=== PATIENT | female | born 1965 | race Caucasian/White ===

== ENCOUNTER 2017-06-18 10:26 | Emergency (ER) | payer MEDICAID ==
[~2017-06-18] VITALS: Ht 185.4 cm; Wt 61.4 kg
[~2017-06-18 10:26] MED LIST: ALPR-624 PO; CYCL-1 PO; DOCU-148 PO; ESTR1TAB19 PO; HYDR1TAB PO; MEDR2.5T7 PO; NAPR-56 PO
[2017-06-18] MEDS ORDERED: LORazepam 1 MG tablet PO ONE (11:20)
[2017-06-18 11:46] LABS: BASOPHILS % (AUTO) 0.4 % (0-1); EOSINOPHILS # (AUTO) 0.1 X10'3 (0-0.9); EOSINOPHILS % (AUTO) 1.2 % (0-6); HEMATOCRIT 42.2 % (35.0-45.0); HEMOGLOBIN 14.6 g/dl (12.0-16.0); LYMPHOCYTES # (AUTO) 2.4 X10'3 (1.1-4.8); LYMPHOCYTES % (AUTO) 34.1 % (21-51); MEAN CORPUSCULAR HEMOGLOBIN 33.2 PG (27.0-31.0); MEAN CORPUSCULAR HGB CONC 34.6 % (33.0-36.5); MEAN PLATELET VOLUME 9.1 FL (7.4-10.4); MONOCYTES # (AUTO) 0.5 X10'3 (0-0.9); MONOCYTES % (AUTO) 7.6 % (2-12); NEUTROPHILS % (AUTO) 56.7 % (42-75); PLATELET COUNT 292 X10'3 (140-440)
[2017-06-18 11:50] LABS: URINE HCG NEGATIVE (NEG)
[2017-06-18 12:00] LABS: URINE AMPHETAMINE SCREEN NEGATIVE (Neg); URINE BARBITUATE SCREEN NEGATIVE (Neg); URINE BENZODIAZEPINES SCREEN NEGATIVE (Neg); URINE CANNABINOID SCREEN POSITIVE (Neg); URINE COCAINE SCREEN NEGATIVE (Neg); URINE METHADONE SCREEN NEGATIVE (Neg); URINE OPIATE SCREEN NEGATIVE (Neg); URINE PHENCYCLIDINE SCREEN NEGATIVE (Neg)
[2017-06-18] MEDS ORDERED: albuterol 2.5 MG/3 ML nebule NEB ONE (12:10)
[2017-06-18 12:12] LABS: ALANINE AMINOTRANSFERASE 41 U/L (12-78); ALBUMIN 4.4 G/DL (3.4-5.0); ALBUMIN/GLOBULIN RATIO 1.2 (1.1-1.5); ALKALINE PHOSPHATASE 58 IU/L (46-116); ANION GAP 12 (8-16); ASPARTATE AMINO TRANSFERASE 38 U/L (10-37); BILIRUBIN,TOTAL 0.7 MG/DL (0.1-1.0); BLOOD UREA NITROGEN 12 MG/DL (7-18); BUN/CREATININE RATIO 13.3 (6.6-38.0); CALCIUM 9.4 MG/DL (8.5-10.1); CHLORIDE 104 MMOL/L (99-107); GLUCOSE 112 MG/DL (70-104); POTASSIUM 3.5 MMOL/L (3.5-5.1); SODIUM 143 MMOL/L (135-145); TOTAL CARBON DIOXIDE 26.8 MMOL/L (24-32); eGFR 66 ML/MIN
[2017-06-18 12:14] LABS: ETHANOL < 0.010 GM/DL (0.0-0.010)
[2017-06-18 15:56] VITALS: BP 144/96
== END 2017-06-18 15:59 | disposition home or self-care (01) ==
LOC: ER 10:26
DX: F31.9 Bipolar disorder, unspecified (principal); F22 Delusional disorders; F41.9 Anxiety disorder, unspecified; G89.29 Other chronic pain; Z79.899 Other long term (current) drug therapy
CPT/HCPCS: 36415; 80053; 80305; 80320; 81025; 84443; 85025; 94640; 99284

== ENCOUNTER 2017-07-25 02:21 | Emergency (ER) | payer MEDICAID ==
[~2017-07-25] VITALS: Ht 180.3 cm; Wt 72.5 kg
[2017-07-25] MEDS ORDERED: ketorolac trometh inj. 60 MG/2 ML VIAL IM ONE (03:30)
[2017-07-25 03:48] LABS: URINE AMPHETAMINE SCREEN POSITIVE (Neg); URINE BARBITUATE SCREEN NEGATIVE (Neg); URINE BENZODIAZEPINES SCREEN NEGATIVE (Neg); URINE CANNABINOID SCREEN POSITIVE (Neg); URINE COCAINE SCREEN NEGATIVE (Neg); URINE METHADONE SCREEN NEGATIVE (Neg); URINE OPIATE SCREEN NEGATIVE (Neg); URINE PHENCYCLIDINE SCREEN NEGATIVE (Neg)
[2017-07-25 04:27] VITALS: BP 138/91
== END 2017-07-25 04:29 | disposition home or self-care (01) ==
LOC: ER 02:22 → EEVIPCON 02:22 → ER 04:29
DX: F23 Brief psychotic disorder (principal); F15.10 Other stimulant abuse, uncomplicated; G89.29 Other chronic pain; M54.5 Low back pain; E86.0 Dehydration; F41.9 Anxiety disorder, unspecified; F32.9 Major depressive disorder, single episode, unspecified; F17.210 Nicotine dependence, cigarettes, uncomplicated; Z98.890 Other specified postprocedural states; Z79.899 Other long term (current) drug therapy
CPT/HCPCS: 80305; 99284

== ENCOUNTER 2017-08-25 15:27 | Emergency (ER) | payer MEDICAID ==
[~2017-08-25] VITALS: Ht 190.5 cm; Wt 68.2 kg
[2017-08-25] MEDS ORDERED: TETanus/Pertussis (Acell)/Diphther VAC/PF (Tdap-Adult) 0.5ml syringe IMVAC ONE (20:25)
[2017-08-25 20:52] VITALS: BP 133/98
[2017-08-25] MEDS ORDERED: LORA10TA7 PO (20:54)
[2017-08-25] MEDS ORDERED: MUPI22OI30 TOP (20:54)
[2017-08-25] MEDS ORDERED: NAPR-56 PO (20:54)
== END 2017-08-25 21:15 | disposition home or self-care (01) ==
LOC: ER 15:27
DX: S20.211A Contusion of right front wall of thorax, initial encounter (principal); S80.262A Insect bite (nonvenomous), left knee, initial encounter; S80.261A Insect bite (nonvenomous), right knee, initial encounter; F15.10 Other stimulant abuse, uncomplicated; G89.29 Other chronic pain; F17.210 Nicotine dependence, cigarettes, uncomplicated; Z98.890 Other specified postprocedural states; Z56.0 Unemployment, unspecified; Z59.0 Homelessness; Z79.899 Other long term (current) drug therapy; Y08.89XA Assault by other specified means, initial encounter; W57.XXXA Bitten or stung by nonvenomous insect and other nonvenomous arthropods, initial encounter; Y93.89 Activity, other specified; Y92.89 Other specified places as the place of occurrence of the external cause; Y99.8 Other external cause status
CPT/HCPCS: 71101; 90471; 90715; 99284

== ENCOUNTER 2017-08-27 00:53 | Emergency (ER) | payer MEDICAID ==
[~2017-08-27] VITALS: Ht 185.4 cm; Wt 65.0 kg
[~2017-08-27 00:53] MED LIST changes: +LORA10TA7 PO; +MUPI22OI30 TOP
[2017-08-27] MEDS ORDERED: ibuprofen tablet 400 MG TABLET PO ONE (02:15)
[2017-08-27 02:36] VITALS: BP 114/66
== END 2017-08-27 02:37 | disposition home or self-care (01) ==
LOC: ER 00:53
DX: M25.511 Pain in right shoulder (principal); J02.9 Acute pharyngitis, unspecified; G89.29 Other chronic pain; F15.10 Other stimulant abuse, uncomplicated; Z98.890 Other specified postprocedural states; Z60.2 Problems related to living alone; Z59.0 Homelessness; Z56.0 Unemployment, unspecified; Z79.899 Other long term (current) drug therapy
CPT/HCPCS: 99283

== ENCOUNTER 2017-09-19 08:53 | Emergency (ER) | payer MEDICAID ==
[~2017-09-19] VITALS: Ht 185.4 cm; Wt 67.5 kg
[~2017-09-19 08:53] MED LIST changes: -MUPI22OI30 TOP
[2017-09-19 08:55] VITALS: BP 94/44
== END 2017-09-19 10:41 | disposition home or self-care (01) ==
LOC: ER 08:53
DX: S90.31XA Contusion of right foot, initial encounter (principal); F17.200 Nicotine dependence, unspecified, uncomplicated; F15.10 Other stimulant abuse, uncomplicated; W22.8XXA Striking against or struck by other objects, initial encounter; Y93.89 Activity, other specified; Y92.89 Other specified places as the place of occurrence of the external cause; Y99.8 Other external cause status
CPT/HCPCS: 73630; 99284

== ENCOUNTER 2017-10-09 16:54 | Emergency (ER) | payer MEDICAID ==
[~2017-10-09] VITALS: Ht 182.9 cm; Wt 65.0 kg
[2017-10-09 17:04] VITALS: BP 145/98
== END 2017-10-09 17:35 | disposition home or self-care (01) ==
LOC: MERGE 16:55 → ER 16:55
DX: Z00.00 Encounter for general adult medical examination without abnormal findings (principal)
CPT/HCPCS: 99283

== ENCOUNTER 2017-10-27 18:33 | Emergency (ER) | payer MEDICAID ==
[~2017-10-27] VITALS: Ht 597.6 cm; Wt 63.0 kg
[2017-10-27] MEDS ORDERED: haloperidol lactate 5mg/ml inj IM ONE (18:55)
[2017-10-27] MEDS ORDERED: LORazepam 2 mg/ml vial IM ONE (18:55)
[2017-10-27] MEDS ORDERED: diphenhydrAMINE 50 mg/ml inj IM ONE (18:55)
[2017-10-27 19:11] LABS: BASOPHILS % (AUTO) 0.2 % (0-1); EOSINOPHILS # (AUTO) 0.2 X10'3 (0-0.9); EOSINOPHILS % (AUTO) 2.2 % (0-6); HEMATOCRIT 40.6 % (35.0-45.0); LYMPHOCYTES # (AUTO) 3.6 X10'3 (1.1-4.8); LYMPHOCYTES % (AUTO) 33.1 % (21-51); MEAN CORPUSCULAR HGB CONC 34.4 % (33.0-36.5); MEAN CORPUSCULAR VOLUME 98.8 FL (78-98); MEAN PLATELET VOLUME 8.2 FL (7.4-10.4); MONOCYTES # (AUTO) 0.6 X10'3 (0-0.9); MONOCYTES % (AUTO) 5.8 % (2-12); NEUTROPHILS # (AUTO) 6.3 X10'3 (1.8-7.7); NEUTROPHILS % (AUTO) 58.7 % (42-75); PLATELET COUNT 325 X10'3 (140-440); RED BLOOD COUNT 4.11 X10'6 (4.20-5.60); WHITE BLOOD COUNT 10.7 X10'3 (4.5-11.0)
[2017-10-27 19:26] LABS: ALANINE AMINOTRANSFERASE 39 U/L (12-78); ALBUMIN 3.5 G/DL (3.4-5.0); ALBUMIN/GLOBULIN RATIO 0.9 (1.1-1.5); ALKALINE PHOSPHATASE 70 IU/L (46-116); ANION GAP 2 (8-16); ASPARTATE AMINO TRANSFERASE 22 U/L (10-37); BILIRUBIN,TOTAL 0.3 MG/DL (0.1-1.0); BLOOD UREA NITROGEN 17 MG/DL (7-18); BUN/CREATININE RATIO 18.1 (6.6-38.0); CHLORIDE 105 MMOL/L (99-107); CREATININE 0.94 MG/DL (0.40-0.90); GLUCOSE 127 MG/DL (70-104); POTASSIUM 4.2 MMOL/L (3.5-5.1); SODIUM 140 MMOL/L (135-145); TOTAL CARBON DIOXIDE 32.7 MMOL/L (24-32); TOTAL PROTEIN 7.2 G/DL (6.4-8.2); eGFR 63 ML/MIN
[2017-10-27 19:35] LABS: ETHANOL < 0.010 GM/DL (0.0-0.010)
[2017-10-27 22:41] LABS: URINE HCG NEGATIVE (NEG)
[2017-10-27 22:48] LABS: CLARITY,URINE SLIGHTLY CLOUDY (Clear); COLOR,URINE YELLOW (Yellow); GLUCOSE, URINE NEGATIVE (Neg); KETONES,URINE NEGATIVE (Neg); LEUKOCYTE ESTERASE ,URINE LARGE (Neg); NITRITES, URINE POSITIVE (Neg); OCCULT BLOOD,URINE NEGATIVE (Neg); PROTEIN,URINE NEGATIVE (Neg); UROBILINOGEN,URINE 0.2 E.U/dL (0.2-1.0)
[2017-10-27 22:49] LABS: URINE AMPHETAMINE SCREEN NEGATIVE (Neg); URINE BARBITUATE SCREEN NEGATIVE (Neg); URINE BENZODIAZEPINES SCREEN NEGATIVE (Neg); URINE CANNABINOID SCREEN POSITIVE (Neg); URINE COCAINE SCREEN NEGATIVE (Neg); URINE METHADONE SCREEN NEGATIVE (Neg); URINE OPIATE SCREEN NEGATIVE (Neg); URINE PHENCYCLIDINE SCREEN NEGATIVE (Neg)
[2017-10-27 22:55] LABS: UA COLLECTION TYPE STRAIGHT CATH
[2017-10-27 22:56] LABS: BACTERIA,URINE 4+ /HPF (Neg); RBC,URINE 0-2 /HPF (0-2); WBC,URINE 20-30 /HPF (0-4)
[2017-10-27 22:57] LABS: SQUAMOUS EPITHELIAL CELL,UR FEW /LPF (FEW)
[2017-10-28] MEDS ORDERED: nitrofuran/nitrofuran macrocrysal 100 MG capsule PO ONE (08:00)
[2017-10-28] MEDS ORDERED: cephalexin 500mg capsule PO ONE (08:00)
[2017-10-28] MEDS ORDERED: nicotine 21mg patch - 24 hr TD ONE (13:15)
[2017-10-28] MEDS: LORazepam 1 MG tablet PO PRN ×2 (13:21→19:43)
[2017-10-28] MEDS ORDERED: ketorolac trometh inj. 60 MG/2 ML VIAL IM ONE (14:50)
[2017-10-28] MEDS ORDERED: DIVA500T7 PO (14:58)
[2017-10-28] MEDS ORDERED: LIT300C PO (14:58)
[2017-10-28] MEDS ORDERED: HYDR-3686 PO (14:58)
[2017-10-28] MEDS ORDERED: RISP4TAB7 PO (14:58)
[2017-10-29] MEDS: LORazepam 1 MG tablet PO PRN (03:20)
[2017-10-29 06:32] VITALS: BP 126/86
[2017-10-29] MEDS ORDERED: ibuprofen 200mg tablet PO PRN (07:10)
[2017-10-29] MEDS ORDERED: ibuprofen tablet 400 MG TABLET PO PRN (07:10)
[2017-10-29] MEDS ORDERED: nicotine 21mg patch - 24 hr TD SCH (08:00)
== END 2017-10-29 08:17 | disposition home or self-care (01) ==
LOC: ER 18:34
DX: R45.851 Suicidal ideations (principal); F23 Brief psychotic disorder; N18.9 Chronic kidney disease, unspecified; F15.90 Other stimulant use, unspecified, uncomplicated; F11.90 Opioid use, unspecified, uncomplicated; Z79.899 Other long term (current) drug therapy; Z56.0 Unemployment, unspecified; Z59.0 Homelessness; Z60.2 Problems related to living alone
CPT/HCPCS: 36415; 80053; 80305; 80320; 81001; 81025; 84443; 85025; 87077; 87088; 87186; 96372; 99285; J1200; J1630; J1885; J2060

== ENCOUNTER 2017-11-07 08:17 | Emergency (ER) | payer MEDICAID ==
[~2017-11-07] VITALS: Ht 182.9 cm; Wt 60.0 kg
[~2017-11-07 08:17] MED LIST changes: +DIVA-76 PO; +HYDR-3686 PO; +LIT300C PO; +RISP4TAB7 PO
[2017-11-07] MEDS ORDERED: LORazepam 2 mg/ml vial IM ONE (08:55)
[2017-11-07] MEDS ORDERED: diphenhydrAMINE 50 mg/ml inj IM ONE (08:55)
[2017-11-07] MEDS ORDERED: haloperidol lactate 5mg/ml inj IM ONE (08:55)
[2017-11-07 10:05] LABS: BASOPHILS % (AUTO) 0.2 % (0-1); EOSINOPHILS # (AUTO) 0.2 X10'3 (0-0.9); EOSINOPHILS % (AUTO) 2.4 % (0-6); HEMOGLOBIN 12.1 g/dl (12.0-16.0); LYMPHOCYTES # (AUTO) 2.7 X10'3 (1.1-4.8); LYMPHOCYTES % (AUTO) 36.3 % (21-51); MEAN CORPUSCULAR HEMOGLOBIN 33.2 PG (27.0-31.0); MEAN CORPUSCULAR HGB CONC 33.5 % (33.0-36.5); MEAN CORPUSCULAR VOLUME 99.1 FL (78-98); MEAN PLATELET VOLUME 8.3 FL (7.4-10.4); MONOCYTES # (AUTO) 0.4 X10'3 (0-0.9); MONOCYTES % (AUTO) 5.5 % (2-12); NEUTROPHILS # (AUTO) 4.1 X10'3 (1.8-7.7); NEUTROPHILS % (AUTO) 55.6 % (42-75); PLATELET COUNT 265 X10'3 (140-440); RED BLOOD COUNT 3.64 X10'6 (4.20-5.60); RED CELL DISTRIBUTION WIDTH 13.9 % (11.5-14.5); WHITE BLOOD COUNT 7.3 X10'3 (4.5-11.0)
[2017-11-07 10:19] LABS: ALANINE AMINOTRANSFERASE 30 U/L (12-78); ALBUMIN 3.4 G/DL (3.4-5.0); ALKALINE PHOSPHATASE 61 IU/L (46-116); ANION GAP 6 (8-16); ASPARTATE AMINO TRANSFERASE 23 U/L (10-37); BILIRUBIN,TOTAL 0.3 MG/DL (0.1-1.0); BLOOD UREA NITROGEN 22 MG/DL (7-18); CALCIUM 8.7 MG/DL (8.5-10.1); CHLORIDE 106 MMOL/L (99-107); CREATININE 0.88 MG/DL (0.40-0.90); ETHANOL < 0.010 GM/DL (0.0-0.010); GLUCOSE 97 MG/DL (70-104); POTASSIUM 3.3 MMOL/L (3.5-5.1); SODIUM 143 MMOL/L (135-145); TOTAL CARBON DIOXIDE 30.8 MMOL/L (24-32); TOTAL PROTEIN 6.7 G/DL (6.4-8.2); eGFR 68 ML/MIN
[2017-11-07 10:23] LABS: CLARITY,URINE CLEAR (Clear); COLOR,URINE YELLOW (Yellow); GLUCOSE, URINE NEGATIVE (Neg); KETONES,URINE TRACE mg/dl (Neg); LEUKOCYTE ESTERASE ,URINE SMALL (Neg); NITRITES, URINE NEGATIVE (Neg); OCCULT BLOOD,URINE NEGATIVE (Neg); PH,URINE 5.5 (4.8-8.0); PROTEIN,URINE NEGATIVE (Neg); UROBILINOGEN,URINE 0.2 E.U/dL (0.2-1.0)
[2017-11-07 10:24] LABS: URINE HCG NEGATIVE (NEG)
[2017-11-07 10:28] LABS: UA COLLECTION TYPE STRAIGHT CATH
[2017-11-07 10:29] LABS: BACTERIA,URINE FEW /HPF (Neg); RBC,URINE 0-2 /HPF (0-2); SQUAMOUS EPITHELIAL CELL,UR MODERATE /LPF (FEW); WBC,URINE 0-4 /HPF (0-4)
[2017-11-07 10:30] LABS: MUCUS STRANDS FEW /LPF (Neg)
[2017-11-07 10:35] LABS: URINE BARBITUATE SCREEN NEGATIVE (Neg); URINE BENZODIAZEPINES SCREEN NEGATIVE (Neg); URINE CANNABINOID SCREEN POSITIVE (Neg); URINE COCAINE SCREEN NEGATIVE (Neg); URINE METHADONE SCREEN NEGATIVE (Neg); URINE OPIATE SCREEN NEGATIVE (Neg); URINE PHENCYCLIDINE SCREEN NEGATIVE (Neg)
[2017-11-07 10:53] LABS: URINE AMPHETAMINE SCREEN POSITIVE (Neg)
[2017-11-08 05:35] VITALS: BP 153/91
[2017-11-08] MEDS ORDERED: NO HOME MEDS (06:55)
== END 2017-11-08 10:50 | disposition home or self-care (01) ==
LOC: ER 08:18
DX: F29 Unspecified psychosis not due to a substance or known physiological condition (principal); F22 Delusional disorders; F17.210 Nicotine dependence, cigarettes, uncomplicated; F15.90 Other stimulant use, unspecified, uncomplicated; F11.90 Opioid use, unspecified, uncomplicated; F10.10 Alcohol abuse, uncomplicated; Z56.0 Unemployment, unspecified
CPT/HCPCS: 36415; 80053; 80305; 80320; 81001; 81025; 85025; 96372; 99284; J1200; J1630; J2060

== ENCOUNTER 2017-11-27 22:51 | Emergency (ER) | payer MEDICAID ==
[~2017-11-27] VITALS: Ht 182.9 cm; Wt 75.0 kg
[~2017-11-27 22:51] MED LIST changes: -ALPR-624 PO; +AMOX500C2 PO; -CYCL-1 PO; -DIVA-76 PO; -DOCU-148 PO; -ESTR1TAB19 PO; -HYDR-3686 PO; -HYDR1TAB PO; +HYDR50CA PO; -LIT300C PO; -LORA10TA7 PO; -MEDR2.5T7 PO; +MUPI22OI30 TOP; -NAPR-56 PO; +NO HOME MEDS; -RISP4TAB7 PO
[2017-11-27 22:54] VITALS: BP 140/80
== END 2017-11-27 23:16 ==
LOC: ER 22:52
DX: F10.129 Alcohol abuse with intoxication, unspecified (principal); I10 Essential (primary) hypertension; F12.90 Cannabis use, unspecified, uncomplicated; F15.90 Other stimulant use, unspecified, uncomplicated; F11.90 Opioid use, unspecified, uncomplicated; Z59.0 Homelessness; Z56.0 Unemployment, unspecified; Z88.1 Allergy status to other antibiotic agents; Z88.8 Allergy status to other drugs, medicaments and biological substances; Y90.9 Presence of alcohol in blood, level not specified
CPT/HCPCS: 99283

== ENCOUNTER 2020-06-08 14:48 | Inpatient (IN) | payer MEDICAID ==
[~2020-06-08] VITALS: Ht 152.4 cm; Wt 81.8 kg
[~2020-06-08 14:48] MED LIST changes: -AMOX500C2 PO; -MUPI22OI30 TOP
[2020-06-08 15:18] LABS: BASOPHILS % (AUTO) 0.2 % (0-1); EOSINOPHILS % (AUTO) 0 % (0-6); LYMPHOCYTES # (AUTO) 0.8 X10'3 (1.1-4.8); MEAN PLATELET VOLUME 10.2 FL (7.4-10.4); NEUTROPHILS % (AUTO) 79.6 % (42-75)
[2020-06-08 15:18] LABS: CLARITY,URINE CLOUDY (Clear); COLOR,URINE YELLOW (Yellow); GLUCOSE, URINE 100 mg/dl (Neg); KETONES,URINE 40 mg/dl (Neg); LEUKOCYTE ESTERASE ,URINE NEGATIVE (Neg); NITRITES, URINE POSITIVE (Neg); OCCULT BLOOD,URINE TRACE-INTACT (Neg); PH,URINE 5.5 (4.8-8.0); PROTEIN,URINE >=300 mg/dl (Neg); URINE HCG NEGATIVE (NEG); UROBILINOGEN,URINE >=8.0 E.U/dL (0.2-1.0)
[2020-06-08 15:20] LABS: HEMATOCRIT 44.1 % (35.0-45.0); HEMOGLOBIN 15.6 g/dl (12.0-16.0); LYMPHOCYTES % (AUTO) 10.6 % (21-51); MEAN CORPUSCULAR HEMOGLOBIN 38.1 PG (27.0-31.0); MEAN CORPUSCULAR HGB CONC 35.3 g/dL (33.0-36.5); MEAN CORPUSCULAR VOLUME 107.7 FL (78-98); MONOCYTES # (AUTO) 0.7 X10'3 (0-0.9); MONOCYTES % (AUTO) 9.6 % (2-12); PLATELET COUNT 121 X10'3 (140-440); RED BLOOD COUNT 4.09 X10'6 (4.20-5.60); RED CELL DISTRIBUTION WIDTH 14.4 % (11.5-14.5); WHITE BLOOD COUNT 7.5 X10'3 (4.5-11.0)
[2020-06-08 15:23] LABS: UA COLLECTION TYPE CLN CATCH MIDSTREAM
[2020-06-08 15:26] LABS: WBC,URINE 0-4 /HPF (0-4)
[2020-06-08 15:27] LABS: BACTERIA,URINE 2+ /HPF (Neg); MUCUS STRANDS MODERATE /LPF (Neg); RBC,URINE 0-2 /HPF (0-2); SQUAMOUS EPITHELIAL CELL,UR MANY /LPF (FEW)
[2020-06-08 15:29] LABS: ALANINE AMINOTRANSFERASE 254 U/L (12-78); ALKALINE PHOSPHATASE 155 IU/L (46-116); ANION GAP 19 (8-16); ASPARTATE AMINO TRANSFERASE 346 U/L (10-37); BILIRUBIN,TOTAL 2.5 MG/DL (0.1-1.0); BLOOD UREA NITROGEN 16 MG/DL (7-18); BUN/CREATININE RATIO 12.8 (6.6-38.0); CALCIUM 9.4 MG/DL (8.5-10.1); CHLORIDE 81 MMOL/L (99-107); CREATININE 1.25 MG/DL (0.40-0.90); GLUCOSE 135 MG/DL (70-104); POTASSIUM 3.2 MMOL/L (3.5-5.1); SODIUM 121 MMOL/L (135-145); TOTAL PROTEIN 7.9 G/DL (6.4-8.2); eGFR 45 ML/MIN
[2020-06-08 15:38] LABS: LIPASE 2402 U/L (73-393)
[2020-06-08 15:41] LABS: PLATELET ESTIMATE DECREASED; TOTAL CELLS COUNTED 100
[2020-06-08] MEDS ORDERED: morphine 4 MG/ML inj SYRINge IV ONE (16:00)
[2020-06-08] MEDS ORDERED: ondansetron/PF 4mg/2ml inj IV ONE (16:00)
[2020-06-08] MEDS ORDERED: pantoprazole 40 MG vial IV ONE (16:00)
[2020-06-08] MEDS ORDERED: morphine 2 MG/ML inj. syringe IV PRN ×2 (16:00→17:25)
[2020-06-08] MEDS ORDERED: normal saline 1000ML IV soln IVB ONE (16:00)
[2020-06-08] MEDS ORDERED: iohexol 300mg/ml 100ml inj. ONE (16:09)
--- NOTE | 2020-06-08 16:23 | NUR ---
iv placed, pt to ct scanner
[2020-06-08] MEDS ORDERED: acetaminophen 325mg tablet PO PRN (17:25)
[2020-06-08] MEDS ORDERED: magnesium hydroxide 30ml (MOM) UD suspension PO PRN (17:25)
[2020-06-08] MEDS ORDERED: mag hydrox/Alum hydrox/simeth 30ml oral suspension PO PRN (17:25)
[2020-06-08] MEDS ORDERED: LORazepam 2 mg/ml vial IV PRN ×2 (17:25)
[2020-06-08] MEDS ORDERED: haloperidol lactate 5mg/ml inj IM PRN (17:25)
[2020-06-08] MEDS ORDERED: dextrose 50%-water 50ml dispensing syringe IV PRN (17:25)
[2020-06-08] MEDS ORDERED: ondansetron/PF 4mg/2ml inj IV PRN (17:25)
[2020-06-08] MEDS: thiamine inj. 100 MG in normal saline 100ml IV soln 100 ML IV SCH (18:29)
[2020-06-08] MEDS: folic acid 1mg/0.2ml inj IV SCH (18:29)
[2020-06-08 19:06] VITALS: BP 134/86
[2020-06-08] MEDS: normal saline 1000ml 1,000 ML IV SCH (19:45)
[2020-06-08] MEDS: morphine 2 MG/ML inj. syringe IV PRN (20:05)
[2020-06-08] MEDS: heparin, porcine 5000 units/ml vial SQ SCH (20:05)
--- NOTE | 2020-06-08 20:34 | NUR ---
ID: [id number] MESSAGE: patient Madison Macdonald in 902 had two runs of VT 4 beats each no symptoms admit for Pancreatitis today. Thanks Antonia [phone]
[2020-06-08] MEDS ORDERED: magnesium Cl slow-release 64mg tablet PO PRN (21:55)
[2020-06-08] MEDS ORDERED: potassium Cl 20 mEq SR tablet PO PRN ×2 (21:55)
[2020-06-08] MEDS ORDERED: magnesium 4gm in 100ml NS 100 ML IV PRN (21:55)
[2020-06-08 22:00] VITALS: BP 111/74
[2020-06-08] MEDS: potassium Cl 40MEQ/1/2NS 520ml 520 ML IV PRN (23:30)
[2020-06-09] MEDS: normal saline 1000ml 1,000 ML IV SCH ×4 (00:05→21:16)
[2020-06-09] MEDS ORDERED: glucagon, human recombinant 1mg kit SUBCUT PRN (00:10)
[2020-06-09] MEDS ORDERED: dextrose 50%-water 50ml dispensing syringe IV PRN ×2 (00:10)
[2020-06-09] MEDS: morphine 2 MG/ML inj. syringe IV PRN ×4 (01:55→21:16)
[2020-06-09 05:00] VITALS: BP 128/72
--- NOTE | 2020-06-09 06:59 | NUR ---
Patient in room ORTHO 4007. I have received report from HANH Herman and had the opportunity to ask questions and assume patient care.
[2020-06-09] MEDS: thiamine inj. 100 MG in normal saline 100ml IV soln 100 ML IV SCH (07:10)
[2020-06-09 07:33] LABS: ALANINE AMINOTRANSFERASE 144 U/L (12-78); ALBUMIN 2.8 G/DL (3.4-5.0); ALBUMIN/GLOBULIN RATIO 0.9 (1.1-1.5); ALKALINE PHOSPHATASE 96 IU/L (46-116); ANION GAP 12 (8-16); ASPARTATE AMINO TRANSFERASE 155 U/L (10-37); BILIRUBIN,TOTAL 1.5 MG/DL (0.1-1.0); BLOOD UREA NITROGEN 12 MG/DL (7-18); BUN/CREATININE RATIO 17.9 (6.6-38.0); CALCIUM 8.3 MG/DL (8.5-10.1); CHLORIDE 100 MMOL/L (99-107); CREATININE 0.67 MG/DL (0.40-0.90); GLUCOSE 71 MG/DL (70-104); SODIUM 135 MMOL/L (135-145); TOTAL CARBON DIOXIDE 22.8 MMOL/L (24-32); TOTAL PROTEIN 5.8 G/DL (6.4-8.2); eGFR > 90 ML/MIN
[2020-06-09 07:35] LABS: POTASSIUM 3.4 MMOL/L (3.5-5.1)
[2020-06-09 07:41] LABS: BASOPHILS % (AUTO) 0.1 % (0-1); EOSINOPHILS % (AUTO) 0.1 % (0-6); HEMATOCRIT 35.4 % (35.0-45.0); HEMOGLOBIN 12.2 g/dl (12.0-16.0); LYMPHOCYTES % (AUTO) 15.8 % (21-51); MEAN CORPUSCULAR HEMOGLOBIN 37.8 PG (27.0-31.0); MEAN CORPUSCULAR HGB CONC 34.6 g/dL (33.0-36.5); MEAN CORPUSCULAR VOLUME 109.4 FL (78-98); MEAN PLATELET VOLUME 10.4 FL (7.4-10.4); MONOCYTES # (AUTO) 0.7 X10'3 (0-0.9); MONOCYTES % (AUTO) 11.8 % (2-12); NEUTROPHILS # (AUTO) 4.4 X10'3 (1.8-7.7); NEUTROPHILS % (AUTO) 72.2 % (42-75); PLATELET COUNT 91 X10'3 (140-440); RED BLOOD COUNT 3.23 X10'6 (4.20-5.60); RED CELL DISTRIBUTION WIDTH 14.2 % (11.5-14.5); WHITE BLOOD COUNT 6.1 X10'3 (4.5-11.0)
[2020-06-09] MEDS: heparin, porcine 5000 units/ml vial SQ SCH ×2 (08:00→19:05)
[2020-06-09] MEDS: K and/or MAG REPLACEMENT MC SCH ×2 (08:00→19:06)
[2020-06-09] MEDS: folic acid 1mg/0.2ml inj IV SCH (09:44)
[2020-06-09] MEDS: potassium Cl 40MEQ/1/2NS 520ml 520 ML IV PRN (09:44)
[2020-06-09 10:00] VITALS: BP 105/52
--- NOTE | 2020-06-09 12:04 | NUR ---
Dr. Terry in to see patient.
--- NOTE | 2020-06-09 15:47 | NUR ---
Patient in room ORTHO 4007. I have received report from HANH Webb and had the opportunity to ask questions and assume patient care.
[2020-06-09 18:00] VITALS: BP 103/63
--- NOTE | 2020-06-09 18:03 | NUR ---
Student documentation: I have reviewed and agree with all interventions, assessments performed and documented by SN Arnulfo. Student Medication Administration: For this medication-pass time frame, all medication were reviewed, dispensed, administered and documented per hospital policy by SN Arnulfo.
--- NOTE | 2020-06-09 18:20 | NUR ---
Problems reprioritized. Patient report given, questions answered & plan of care reviewed with HANH Meeks.
--- NOTE | 2020-06-09 18:20 | NUR ---
Problems reprioritized. Patient report given, questions answered & plan of care reviewed with HANH Meeks.
--- NOTE | 2020-06-09 18:30 | NUR ---
Patient in room ORTHO 4007. I have received report from radha Martinez and had the opportunity to ask questions and assume patient care.
[2020-06-09 22:00] VITALS: BP 114/72
[2020-06-10] MEDS: normal saline 1000ml 1,000 ML IV SCH ×3 (02:49→16:05)
[2020-06-10] MEDS: morphine 2 MG/ML inj. syringe IV PRN ×3 (05:26→22:02)
[2020-06-10 06:00] VITALS: BP 130/80
--- NOTE | 2020-06-10 06:30 | NUR ---
Patient in room ORTHO 4007. I have received report from Jeanna SCHAFER and had the opportunity to ask questions and assume patient care.
[2020-06-10] MEDS: folic acid 1mg/0.2ml inj IV SCH (07:36)
[2020-06-10] MEDS: thiamine inj. 100 MG in normal saline 100ml IV soln 100 ML IV SCH (07:36)
[2020-06-10 07:45] LABS: BASOPHILS % (AUTO) 0.2 % (0-1); EOSINOPHILS % (AUTO) 0.7 % (0-6); HEMATOCRIT 31.8 % (35.0-45.0); HEMOGLOBIN 10.9 g/dl (12.0-16.0); LYMPHOCYTES # (AUTO) 0.9 X10'3 (1.1-4.8); LYMPHOCYTES % (AUTO) 15.7 % (21-51); MEAN CORPUSCULAR HEMOGLOBIN 38.6 PG (27.0-31.0); MEAN CORPUSCULAR HGB CONC 34.4 g/dL (33.0-36.5); MEAN CORPUSCULAR VOLUME 112.4 FL (78-98); MEAN PLATELET VOLUME 9.4 FL (7.4-10.4); MONOCYTES # (AUTO) 0.7 X10'3 (0-0.9); MONOCYTES % (AUTO) 11.2 % (2-12); NEUTROPHILS # (AUTO) 4.3 X10'3 (1.8-7.7); NEUTROPHILS % (AUTO) 72.2 % (42-75); PLATELET COUNT 109 X10'3 (140-440); RED BLOOD COUNT 2.83 X10'6 (4.20-5.60); RED CELL DISTRIBUTION WIDTH 14.5 % (11.5-14.5); WHITE BLOOD COUNT 5.9 X10'3 (4.5-11.0)
[2020-06-10 07:56] LABS: ANION GAP 15 (8-16); BLOOD UREA NITROGEN 9 MG/DL (7-18); CHLORIDE 103 MMOL/L (99-107); CREATININE 0.48 MG/DL (0.40-0.90); GLUCOSE 77 MG/DL (70-104); POTASSIUM 3.1 MMOL/L (3.5-5.1); SODIUM 138 MMOL/L (135-145); TOTAL CARBON DIOXIDE 19.8 MMOL/L (24-32)
[2020-06-10 07:57] LABS: ALANINE AMINOTRANSFERASE 138 U/L (12-78); ALBUMIN 2.5 G/DL (3.4-5.0); ALBUMIN/GLOBULIN RATIO 0.8 (1.1-1.5); ALKALINE PHOSPHATASE 102 IU/L (46-116); ASPARTATE AMINO TRANSFERASE 202 U/L (10-37); BILIRUBIN,TOTAL 1.3 MG/DL (0.1-1.0); BUN/CREATININE RATIO 18.8 (6.6-38.0); CALCIUM 8.1 MG/DL (8.5-10.1); LIPASE 895 U/L (73-393); TOTAL PROTEIN 5.5 G/DL (6.4-8.2); eGFR > 90 ML/MIN
[2020-06-10] MEDS: heparin, porcine 5000 units/ml vial SQ SCH ×2 (08:00→19:37)
[2020-06-10] MEDS: K and/or MAG REPLACEMENT MC SCH ×2 (08:07→20:00)
[2020-06-10 09:45] LABS: PLATELET ESTIMATE DECREASED
[2020-06-10 09:46] LABS: HYPOCHROMASIA 1+
[2020-06-10 09:47] LABS: STOMATOCYTES 1+
[2020-06-10 10:00] VITALS: BP 130/89
[2020-06-10] MEDS: potassium Cl 40MEQ/1/2NS 520ml 520 ML IV PRN (10:54)
[2020-06-10 18:00] VITALS: BP 147/96
--- NOTE | 2020-06-10 18:25 | NUR ---
Report to Jeanna SCHAFER
--- NOTE | 2020-06-10 18:30 | NUR ---
Patient in room ORTHO 4007. I have received report from HANH BASSETT and had the opportunity to ask questions and assume patient care.
[2020-06-10 21:45] VITALS: BP 150/102
[2020-06-11] MEDS: normal saline 1000ml 1,000 ML IV SCH ×2 (01:39→05:25)
[2020-06-11 06:00] VITALS: BP 148/94
--- NOTE | 2020-06-11 06:43 | NUR ---
Problems reprioritized. Patient report given, questions answered & plan of care reviewed with HANH ANDRADE.
--- NOTE | 2020-06-11 07:00 | NUR ---
Patient in room ORTHO 4007. I have received report from Jeanna SCHAFER and had the opportunity to ask questions and assume patient care.
[2020-06-11 07:39] LABS: BASOPHILS % (AUTO) 0.4 % (0-1); EOSINOPHILS # (AUTO) 0.1 X10'3 (0-0.9); EOSINOPHILS % (AUTO) 1.1 % (0-6); HEMOGLOBIN 11.2 g/dl (12.0-16.0); LYMPHOCYTES # (AUTO) 1.4 X10'3 (1.1-4.8); LYMPHOCYTES % (AUTO) 21.7 % (21-51); MEAN CORPUSCULAR HEMOGLOBIN 38.7 PG (27.0-31.0); MEAN CORPUSCULAR HGB CONC 35.1 g/dL (33.0-36.5); MEAN CORPUSCULAR VOLUME 110.1 FL (78-98); MEAN PLATELET VOLUME 8.3 FL (7.4-10.4); MONOCYTES # (AUTO) 0.9 X10'3 (0-0.9); MONOCYTES % (AUTO) 13.9 % (2-12); NEUTROPHILS # (AUTO) 3.9 X10'3 (1.8-7.7); NEUTROPHILS % (AUTO) 62.9 % (42-75); PLATELET COUNT 167 X10'3 (140-440); RED BLOOD COUNT 2.91 X10'6 (4.20-5.60); RED CELL DISTRIBUTION WIDTH 14.3 % (11.5-14.5); WHITE BLOOD COUNT 6.3 X10'3 (4.5-11.0)
[2020-06-11 08:27] LABS: ALANINE AMINOTRANSFERASE 155 U/L (12-78); ALBUMIN 2.5 G/DL (3.4-5.0); ALBUMIN/GLOBULIN RATIO 0.8 (1.1-1.5); ALKALINE PHOSPHATASE 120 IU/L (46-116); ANION GAP 12 (8-16); ASPARTATE AMINO TRANSFERASE 223 U/L (10-37); BILIRUBIN,TOTAL 1.1 MG/DL (0.1-1.0); BLOOD UREA NITROGEN 3 MG/DL (7-18); BUN/CREATININE RATIO 5.5 (6.6-38.0); CALCIUM 7.9 MG/DL (8.5-10.1); CHLORIDE 99 MMOL/L (99-107); CREATININE 0.55 MG/DL (0.40-0.90); GLUCOSE 98 MG/DL (70-104); SODIUM 135 MMOL/L (135-145); TOTAL CARBON DIOXIDE 24.4 MMOL/L (24-32); TOTAL PROTEIN 5.7 G/DL (6.4-8.2); eGFR > 90 ML/MIN
[2020-06-11 08:32] LABS: POTASSIUM 2.9 MMOL/L (3.5-5.1)
[2020-06-11] MEDS: thiamine inj. 100 MG in normal saline 100ml IV soln 100 ML IV SCH (08:41)
[2020-06-11] MEDS: folic acid 1mg/0.2ml inj IV SCH (08:41)
[2020-06-11] MEDS: heparin, porcine 5000 units/ml vial SQ SCH (08:42)
--- NOTE | 2020-06-11 08:55 | NUR ---
PAGER ID: [phone] MESSAGE: re: TorresMadison capps, Room 4007 Critical K+ 2.9 Replacing per ordered protocol. Brittanie Ortho/Neuro [phone] Pt stable without complaints. Will continue to monitor.
[2020-06-11 08:56] LABS: LIPASE 864 U/L (73-393)
[2020-06-11 09:20] LABS: HYPOCHROMASIA 1+; PLATELET ESTIMATE NORMAL; STOMATOCYTES 1+
[2020-06-11 10:00] VITALS: BP 143/93
--- NOTE | 2020-06-11 10:00 | NUR ---
Dr Terry at pt bedside, report given, orders received. Per Dr Terry, give K+ 40 sylvia PO 2 hrs after a.m. dose, then check K+ level 2 hours after last PO dose, timed for 1300. Will continue to monitor. Addendum: 06/11/20 at 1251 by Kianna Claros RN Will call after lab resulted and will determine if pt ok to d/c.
[2020-06-11] MEDS ORDERED: THIA100T70 PO (10:51)
[2020-06-11] MEDS ORDERED: FOLI0.4T6 PO (10:51)
[2020-06-11] MEDS ORDERED: potassium Cl 20 mEq SR tablet PO ONE (11:00)
--- NOTE | 2020-06-11 14:24 | NUR ---
PAGER ID: [phone] MESSAGE: re: TorresMadison capps, Room 4007 K+ resulted is 3.5. Ok to discharge home? thank you, Brittanie [phone]
--- NOTE | 2020-06-11 15:42 | NUR ---
PAGER ID: [phone] MESSAGE: re: Madison Macdonald, Room 4007 K+ resulted from 1300 draw and is 3.5. Ok to discharge home? thank you, Brittanie [phone] 2nd page. Will continue to monitor.
--- NOTE | 2020-06-11 15:58 | NUR ---
phone call from irwin Ayala to discharge patient home.
--- NOTE | 2020-06-11 17:00 | NUR ---
Pt stable and appropriate for d/c. PIV dc'd, cannula intact. Tele monitor removed and returned to PCU. Reviewed with pt all d/c instructions and meds, with pt given opportunity to ask questions, answers provided and pt verbalizing understanding. Prescriptions escripted to pharmacy of choice. Pt to call and schedule appt with PCP within one week and to call PCP with any questions/concerns, worsening symptoms or return to nearest ED. Pt escorted to front lobby by staff member with pt stating she had all personal belongings. Pt d/c'd home in private vehicle driven by friend.
--- NOTE | 2020-06-12 13:28 | NUR ---
CASE MANAGEMENT DISCHARGE FOLLOW UP: T/c to pt, no answer, left message requesting callback.
== END 2020-06-11 17:15 | disposition home or self-care (01) | DRG 282 ==
LOC: ER 14:48 → ED HOLD 17:40 → EDBEDREQ 18:12 → ORTHO 4S 19:11
PROVIDERS: ADMIT Family Medicine; ATTEND Family Medicine
DX: K85.20 Alcohol induced acute pancreatitis without necrosis or infection (principal); E87.1 Hypo-osmolality and hyponatremia; E87.6 Hypokalemia; N17.9 Acute kidney failure, unspecified; R74.01 Elevation of levels of liver transaminase levels; F17.210 Nicotine dependence, cigarettes, uncomplicated; F10.20 Alcohol dependence, uncomplicated; F12.90 Cannabis use, unspecified, uncomplicated; G89.29 Other chronic pain; M54.9 Dorsalgia, unspecified; Z59.0 Homelessness
CPT/HCPCS: 36415; 74177; 80053; 81001; 81025; 82948; 83690; 84132; 85007; 85008; 85025; 85610; 87081; 93308; 96374; 99285; C9113; G0378; J1644; J2270; J2405; J3411; J3480; J3490; J7030; Q9967

== ENCOUNTER 2020-08-10 09:13 | Emergency (ER) | payer MEDICAID ==
[~2020-08-10] VITALS: Ht 182.9 cm; Wt 90.0 kg
[~2020-08-10 09:13] MED LIST changes: -HYDR50CA PO; -NO HOME MEDS; +THIA100T70 PO
[2020-08-10 10:28] LABS: CLARITY,URINE CLEAR (Clear); COLOR,URINE YELLOW (Yellow); GLUCOSE, URINE NEGATIVE (Neg); KETONES,URINE 40 mg/dl (Neg); LEUKOCYTE ESTERASE ,URINE TRACE (Neg); NITRITES, URINE NEGATIVE (Neg); OCCULT BLOOD,URINE NEGATIVE (Neg); PH,URINE 5.5 (4.8-8.0); PROTEIN,URINE 30 mg/dl (Neg)
[2020-08-10 10:29] LABS: URINE HCG NEGATIVE (NEG)
[2020-08-10 10:35] LABS: UA COLLECTION TYPE CLN CATCH MIDSTREAM
[2020-08-10 10:36] LABS: RBC,URINE NONE SEEN /HPF (0-2); WBC,URINE 0-4 /HPF (0-4)
[2020-08-10 10:37] LABS: BACTERIA,URINE FEW /HPF (Neg); HYALINE CASTS 0-3 /LPF (NEGATIVE); MUCUS STRANDS FEW /LPF (Neg); SQUAMOUS EPITHELIAL CELL,UR FEW /LPF (FEW)
[2020-08-10] MEDS ORDERED: normal saline 1000ML IV soln IVB ONE (10:40)
[2020-08-10 10:42] VITALS: BP 117/93
[2020-08-10] MEDS ORDERED: morphine 4 MG/ML inj SYRINge IV ONE (10:45)
[2020-08-10] MEDS ORDERED: ondansetron/PF 4mg/2ml inj IV ONE (10:50)
[2020-08-10 11:05] LABS: BASOPHILS % (AUTO) 0.2 % (0-1); EOSINOPHILS % (AUTO) 0 % (0-6); HEMATOCRIT 44.8 % (35.0-45.0); HEMOGLOBIN 15.4 g/dl (12.0-16.0); LYMPHOCYTES # (AUTO) 0.9 X10'3 (1.1-4.8); LYMPHOCYTES % (AUTO) 13.3 % (21-51); MEAN CORPUSCULAR HEMOGLOBIN 36.5 PG (27.0-31.0); MEAN CORPUSCULAR HGB CONC 34.5 g/dL (33.0-36.5); MEAN PLATELET VOLUME 9.4 FL (7.4-10.4); MONOCYTES # (AUTO) 0.3 X10'3 (0-0.9); MONOCYTES % (AUTO) 4.7 % (2-12); NEUTROPHILS # (AUTO) 5.3 X10'3 (1.8-7.7); NEUTROPHILS % (AUTO) 81.8 % (42-75); PLATELET COUNT 159 X10'3 (140-440); RED BLOOD COUNT 4.23 X10'6 (4.20-5.60); RED CELL DISTRIBUTION WIDTH 13.6 % (11.5-14.5); WHITE BLOOD COUNT 6.4 X10'3 (4.5-11.0)
[2020-08-10 11:17] LABS: PARTIAL THROMBOPLASTIN TIME 29 SECONDS (22-32)
[2020-08-10 11:20] LABS: ALANINE AMINOTRANSFERASE 132 U/L (12-78); ALBUMIN 3.9 G/DL (3.4-5.0); ALBUMIN/GLOBULIN RATIO 0.9 (1.1-1.5); ALKALINE PHOSPHATASE 102 IU/L (46-116); ANION GAP 18 (8-16); ASPARTATE AMINO TRANSFERASE 131 U/L (10-37); BILIRUBIN,TOTAL 1.1 MG/DL (0.1-1.0); BLOOD UREA NITROGEN 12 MG/DL (7-18); BUN/CREATININE RATIO 14.6 (6.6-38.0); CHLORIDE 93 MMOL/L (99-107); CREATININE 0.82 MG/DL (0.40-0.90); GLUCOSE 125 MG/DL (70-104); LIPASE 714 U/L (73-393); SODIUM 135 MMOL/L (135-145); TOTAL CARBON DIOXIDE 24.3 MMOL/L (24-32); TOTAL PROTEIN 8.2 G/DL (6.4-8.2); eGFR 73 ML/MIN
[2020-08-10 11:24] LABS: POTASSIUM 2.9 MMOL/L (3.5-5.1)
[2020-08-10] MEDS ORDERED: potassium Cl 20 mEq SR tablet PO SCH (11:39)
[2020-08-10] MEDS ORDERED: HYDR-89 PO (12:22)
[2020-08-10 14:05] LABS: OCCULT BLOOD STOOL NEGATIVE (Neg)
== END 2020-08-10 12:34 | disposition home or self-care (01) ==
LOC: ER 09:14
DX: K85.90 Acute pancreatitis without necrosis or infection, unspecified (principal); G89.29 Other chronic pain; F17.200 Nicotine dependence, unspecified, uncomplicated; F12.90 Cannabis use, unspecified, uncomplicated; F15.90 Other stimulant use, unspecified, uncomplicated; Z72.89 Other problems related to lifestyle; Z98.890 Other specified postprocedural states; Z60.2 Problems related to living alone; Z59.0 Homelessness; Z56.0 Unemployment, unspecified; Z79.899 Other long term (current) drug therapy
CPT/HCPCS: 36415; 80053; 81001; 81025; 82272; 83690; 85025; 85610; 85730; 87088; 96374; 96375; 99284; J2270; J2405; J7030